=== PATIENT | female | born 1995 | race Hispanic/Latino ===

== ENCOUNTER 2018-10-22 22:59 | Emergency (ER) | payer OTHER ==
[2018-10-23 00:14] LABS: #Basophils 0.1 thou/uL (0.0-0.2); #Eosinphils 0.1 thou/uL (0.0-0.7); #Lymphocytes 2.4 thou/uL (1.20-3.40); #Monocytes 0.4 thou/uL (0.11-0.59); #Neutrophils 9.9 thou/uL (1.40-6.50); %Basophils 0.4 % (0.0-1.0); %Eosinophils 0.9 % (0.0-10.0); %Monocytes 2.8 % (0.0-10.0); %Neutrophils 76.8 % (42.0-75.0); Hemoglobin 13.4 g/dL (12.0-16.0); Mean Corpuscular HGB CONC 34.2 g/dL (32.0-36.0); Mean Corpuscular Hemoglobin 30.7 pg (27.0-31.0); Mean Corpuscular Volume 89.6 fL (78.0-98.0); Mean Platelet Volume 7.7 fL (7.4-10.4); Platelet Count 235 thou/uL (130-400); RBC Distribution Width 11.9 % (11.5-14.5); Red Blood Cell (RBC) Count 4.35 mill/uL (4.20-5.40); White Blood Cell (WBC) Count 12.8 thou/uL (4.8-10.8)
[2018-10-23] MEDS ORDERED: Ondansetron PF 4 MG/2 ML Vial ONE (00:25)
[2018-10-23] MEDS ORDERED: Morphine 4 MG/ML VIAL ONE (00:25)
[2018-10-23 00:37] LABS: Bilirubin Negative (Negative); Blood, Urine Negative (Negative); Clarity CLEAR (Clear); Glucose, Urine (Dipstick) Negative (Negative); Leukocyte Trace (Negative); Nitrite Negative (Negative); Protein, Urine (Dipstick) Negative (Neg-Trace); Specific Gravity, Urine 1.029 (1.002-1.036)
[2018-10-23 00:38] LABS: ALT (SGPT) 15 U/L (8-55); AST (SGOT) 13 U/L (5-34); Albumin 4.2 g/dL (3.5-5.0); Alkaline Phosphatase 63 U/L (40-150); Anion Gap 13 mmol/L (10-20); BUN (Urea Nitrogen) 16 mg/dL (7.0-18.7); Bilirubin, Total 0.3 mg/dL (0.2-1.2); Calc. Creatinine Clearance 0 mL/min (70-130); Calcium 9.3 mg/dL (7.8-10.44); Carbon Dioxide 22 mmol/L (22-29); Chloride 106 mmol/L (98-107); Estimated GFR-MDRD Greater than 90; Globulin 2.7 g/dL (2.4-3.5); Glucose 104 mg/dL (70-105); Lipase 18 U/L (8-78); Potassium 3.6 mmol/L (3.5-5.1); Protein, Total 6.9 g/dL (6.0-8.3); Sodium 137 mmol/L (136-145)
[2018-10-23 00:39] LABS: Bacteria/HPF None Seen HPF (None Seen); Hyaline Casts/LPF 0-3 HYALINE CAST LPF (0-3 Hyaline); Pathc Cast-AUWi Flag 0.14 (0-2.49); RBC/HPF 0-3 HPF (0-3); Squamous Epithelial 0-3 HPF (0-3)
[2018-10-23 00:40] LABS: Pregnancy Test - Urine (BHCG) Negative (Negative); Pregu Control Background? CLEAR/WHITE (CLR/WHITE); Pregu Control Bar Appear? YES (CONTROL BAR); Specific Gravity 1.029 (1.002-1.036)
--- NOTE | 2018-10-23 08:45 | CT ---
PRELIMINARY REPORT/[facility]/EMERGENTY AFTER-HOURS PROCEDURE Addendum created by Mike Bourne MD on 10/23/2018 5:55 AM Central Time ([place] & [place]) THIS REPORT CONTAINS FINDINGS THAT MAY BE CRITICAL TO PATIENT CARE. The findings were verbally commun icated via telephone conference with RAJESH FOFANA at 5:55 AM NEWSPAPER CARRIERS SUPERVISOR on 10/23/2018. The findings were ack nowledged and understood. 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 TECHNIQUE: Axial computed tomography images of the abdomen and pelvis with intravenous contrast. Coronal reforma tted images were created and reviewed. COMPARISON: No relevant prior studies available. FINDINGS: Lower thorax: No acute findings. ABDOMEN: Liver: No acute findings. No mass. Gallbladder and bile ducts: No calcified stones. No ductal dilation. Pancreas: No acute findings. No mass. No ductal dilation. Spleen: No acute findings. No mass. Adrenals: No acute findings. No mass. Kidneys and ureters: Left renal small probable calculi. Otherwise unremarkable. Stomach and bowel: Fecal loading. Diverticulosis. No evidence of bowel obstruction. Appendix: No evidence of appendicitis. PELVIS: Bladder: No acute findings. Reproductive: Large multiloculated/multicystic mass in posterior cul de sac. ABDOMEN and PELVIS: Intraperitoneal space: Trace cul de sac fluid. No free air. Bones/joints: No acute fracture. Soft tissues: No acute findings. Vasculature: No acute findings. No abdominal aortic aneurysm. Lymph nodes: No significant lymphadenopathy. Small and a few prominent mesenteric lymph nodes. IMPRESSION: Large multiloculated/multicystic pelvic mass could relate to left ovary; recommend further evaluation with pelvic ultrasound including doppler to asses for torsion. Thank you for allowing us to participate in the care of your patient. Dictated and Authenticated by: Mike Bourne MD 10/23/2018 3:24 AM Central Time ([place] & [place]) FINAL REPORT CT OF THE ABDOMEN AND PELVIS WITH CONTRAST EMERGENT AFTER HOURS EXAM: FINDINGS/IMPRESSION: I agree with the findings and impression given in the preliminary report per [facility] physician. There is a large mass just behind the uterus and in the left aspect of the pelvis. This could represent an enlarged ovary with large follicles. A pelvic ultrasound is recommended for further evaluation and to exclude ovarian torsion. If torsion is not present, then an MRI of the pelvis without and with co ntrast is recommended to better characterize the mass. POS: CET
[2018-10-23] MEDS ORDERED: ISOVUE-370 76%-LOCM 1 ML ONE (12:15)
== END 2018-10-23 03:55 | disposition home or self-care (01) ==
LOC: ERS 22:59
DX: R19.03 Right lower quadrant abdominal swelling, mass and lump (principal)
CPT/HCPCS: 36415; 74177; 80053; 81003; 81015; 81025; 83690; 85025; 96361; 96374; J2270; J2405

== ENCOUNTER 2018-12-04 00:11 | Outpatient (CLI) | payer OTHER ==
[2018-12-04 10:21] LABS: #Basophils 0.1 thou/uL (0.0-0.2); #Lymphocytes 1.7 thou/uL (1.20-3.40); #Monocytes 0.3 thou/uL (0.11-0.59); #Neutrophils 4.1 thou/uL (1.40-6.50); %Basophils 1.1 % (0.0-1.0); %Eosinophils 0.7 % (0.0-10.0); %Lymphocytes 26.9 % (21.0-51.0); %Monocytes 4.9 % (0.0-10.0); %Neutrophils 66.4 % (42.0-75.0); Hemoglobin 13.6 g/dL (12.0-16.0); Mean Corpuscular HGB CONC 32.5 g/dL (32.0-36.0); Mean Corpuscular Hemoglobin 30.1 pg (27.0-31.0); Mean Corpuscular Volume 92.6 fL (78.0-98.0); Mean Platelet Volume 7.9 fL (7.4-10.4); Platelet Count 272 thou/uL (130-400); RBC Distribution Width 12.3 % (11.5-14.5); Red Blood Cell (RBC) Count 4.52 mill/uL (4.20-5.40); White Blood Cell (WBC) Count 6.1 thou/uL (4.8-10.8)
[2018-12-04 10:31] LABS: BHCG - Serum Negative (NEGATIVE); Pregs Control Background? CLEAR/WHITE (CLR/WHITE); Pregs Control Bar Appear? YES (CONTROL BAR)
== END 2018-12-04 00:12 | disposition home or self-care (01) ==
LOC: LABBT 00:11
PROVIDERS: ATTEND Obstetrics & Gynecology
DX: Z01.812 Encounter for preprocedural laboratory examination (principal); N85.8 Other specified noninflammatory disorders of uterus
CPT/HCPCS: 84703; 85025; 86850; 86900; 86901

== ENCOUNTER 2018-12-05 10:20 | Day surgery (SDC) | payer OTHER ==
[2018-12-04 09:46] VITALS: BMI 34.2
--- NOTE | 2018-12-04 17:33 | HP ---
REASON FOR ADMISSION: Persistent complex left adnexal mass. SCHEDULED PROCEDURE: Laparoscopic left salpingo-oophorectomy with da Daniel robot assist. HISTORY OF PRESENT ILLNESS: Ms. Reis is a 23-year-old 2, para 2, with a long history of adnexal masses and ovarian cyst on the left. She initially presented to the emergency room at [facility] in early October and was found to have a complex cyst without evidence of torsion measuring approximately 8 cm in the greatest diameter. It was followed up with a repeat ultrasound in late October and found to have enlarged to approximately 12 cm in greatest diameter. CA-125 was checked and was 39.7. While this is above the upper limits of normal, it is not to the degree that would be expected with epithelial ovarian malignancy and suspicion is for probable chronic tubo-ovarian abscess versus endometrioma versus other neoplasm. The patient desires definitive surgical management. 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 No history of dysplasia. No history of STDs. Previous history of ovarian cystectomy. PAST MEDICAL HISTORY: None. PAST SURGICAL HISTORY: Ovarian cystectomy, benign pathology by patient report. ALLERGIES: NONE. MEDICATIONS: 1. [place]. 2. Ibuprofen. SOCIAL HISTORY: Denies tobacco, alcohol, or IV drug use. FAMILY HISTORY: Noncontributory. REVIEW OF SYSTEMS: Noncontributory. PHYSICAL EXAMINATION: VITAL SIGNS: White female, 5 feet 4 inches, 202 pounds, BMI 34.7, blood pressure 126/72, pulse 80, respirations 18, temperature 98.5. HEENT: Within normal limits. LUNGS: Clear to auscultation bilaterally. HEART: Regular rate and rhythm. BREASTS: No masses bilaterally. ABDOMEN: Soft and nontender. No rebound or guarding. No fluid waves noted on the abdominal exam. PELVIC: Vulva without lesions. Vagina without discharge. Cervix, parous. Uterus, anteverted, 6-week size, slightly deviated to right with fullness noted with mild to moderate discomfort on bimanual in the left adnexum. EXTREMITIES: Without clubbing, cyanosis, or edema. LABORATORY DATA: CA-125 as noted in the HPI. IMAGING DATA: Ultrasound as noted in the HPI. IMPRESSION: Complex left adnexal mass, persistent and enlarging slightly. PLAN: Discussed with the patient options. We will proceed with da Daniel robot assist laparoscopic left salpingo-oophorectomy. Anticipate a GelPOINT approach supraumbilical with large specimen retrieval bag and extracorporeal retrieval/morcellation of adnexal mass. The patient understands the risks and benefits of the procedure. We will administer appropriate antibiotic and DVT prophylaxis. Job ID: [id number]
[2018-12-05] MEDS ORDERED: Gabapentin 300 MG CAP ONE (11:15)
[2018-12-05] MEDS ORDERED: CeleCOXIB 100 MG CAP ONE (11:16)
[2018-12-05] MEDS ORDERED: Famotidine/PF 20 mg/2ml Vial ONE (11:17)
[2018-12-05] MEDS ORDERED: Fentanyl 100 MCG/2 ML VIAL ONE ×2 (11:40→14:00)
[2018-12-05] MEDS ORDERED: Bupivacaine HCl 0.5%/Epinephrine 1:200,000/PF 30 ml Vial ONE (11:50)
[2018-12-05] MEDS ORDERED: Midazolam HCl 2 mg/2 ml Vial ONE (11:54)
[2018-12-05] MEDS ORDERED: SUGAMMADEX SODIUM 200 MG/2 ML VIAL ONE (13:30)
--- NOTE | 2018-12-05 14:50 | OP ---
DATE OF PROCEDURE: 12/05/2018 PREOPERATIVE DIAGNOSIS: Complex 12 x 8 x 6 cm left adnexal mass. POSTOPERATIVE DIAGNOSES: 1. Complex 12 x 8 x 6 cm left adnexal mass. 2. 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 PROCEDURES PERFORMED: Laparoscopic left salpingo-oophorectomy with lysis of adhesions, da Daniel robot assist and extracorporal retrieval with [employer] bag and GelPOINT. ASSISTANTS: 1. Suresh Lino DO, MS. 2. Deana Hunter PA-C. ANESTHESIA: General endotracheal. ESTIMATED BLOOD LOSS: Less than 50 mL. COMPLICATIONS: None. DRAINS: Maxwell to gravity. OPERATIVE FINDINGS: 1. Complex posterior cul-de-sac, left adnexal mass with thin filmy adhesions to pelvic sidewall consistent with mature cystic teratoma. 2. Normal-appearing right tube and ovary without evidence of contralateral teratoma. 3. Normal-appearing uterus. 4. Hemostasis, clear urine. COUNTS: Correct at the end of the procedure. DISPOSITION: Recovery room in good condition. DESCRIPTION OF PROCEDURE: After obtaining appropriate informed consent, the patient was taken to the operating room, where general endotracheal anesthesia was achieved without difficulty. The patient was prepped and draped in the usual manner. Maxwell catheter was placed in the bladder. Cervix was identified, grasped with single-tooth tenaculum and a VON manipulator was placed inside. Studio Receptionist changed his gloves, turned attention to abdominal portion of procedure. 5 mL of Marcaine was injected above the umbilicus and a 12 mm skin incision was made. Direct insertion of a noncutting 12 mm trocar was introduced in direct technique with the laparoscope inside an Optiview manner. Confirmation of entry into the peritoneal cavity was identified without trauma to the underlying viscera. The abdomen was insufflated with carbon dioxide. The patient was placed in Trendelenburg position. Right and left lateral da Daniel robot assistant to the ceo ports were placed under direct visualization as well as an assistant to the ceo port 11 mm in the right upper quadrant. Findings as noted in the operative findings were noted. The da Daniel camera was removed and the skin incision enlarged approximately 3 cm at the level of the umbilicus, taken down to the fascia and approximately 2.5 cm incision was made through the fascia for placement of the [employer] GelPOINT port, which was then placed in the abdomen reinsufflated with carbon dioxide. Da Daniel robot was docked with monopolar scissors in the right hand and bipolar fenestrated forceps in the left. The patient had been placed in steep Trendelenburg and the da Daniel docked. The infundibulopelvic ligament was identified and noted to be on stretch on the patient's left. It was coagulated and transected and then carried through the mesosalpinx and broad ligament all the way up to the level of the utero-ovarian ligament, which was coagulated and transected. The specimen having been freed of its vascular appendages. Traction was applied to it midline. Thin filmy adhesions were identified and these were taken down. The ureter was well identified and noted to be well below the level of the pelvic brim and the IP ligament at its coagulation and transection site. Large [employer] retrieval bag had been placed in the abdomen previous to docking the da Daniel robot, it was pulled into the pelvis. Stay sutures removed and the specimen placed in the back. It was then grasped with an atraumatic grasper that had been introduced through the GelPOINT and the strings pulled out. Da Daniel instruments were removed and undocked and the patient levelled off insufflation was ceased and the GelPOINT covering was removed and the retrieval bag pulled out through the small Ismael O, that had been introduced at the level of the umbilicus. The adnexal mass was grasped and incised. Sebum was noted with some tissue that appeared to be consistent with thyroid tissue. The specimen was morcellated out in a extracorporeal manner taking care to avoid spillage into the abdominal cavity. Once the entire specimen was removed, the [employer] large retrieval bag was removed from the abdomen. The entire specimen was sent for pathologic analysis. The small Ismael O was removed and the fascial edges grasped. Fascia closed using a running continuous 0 PDS suture. Subcutaneous tissue irrigated. Subcuticular closing all trocar sites and then Dermabond applied. Maxwell catheter removed. VON manipulator removed. The patient awakened and extubated to recovery room in good condition. She will be followed per [facility] as scheduled. Job ID: [id number]
[2018-12-05] MEDS ORDERED: HYDROcodone/Acetaminophen 5/325 mg Tablet ONE (14:54)
[2018-12-05] MEDS ORDERED: Ondansetron PF 4 MG/2 ML Vial ONE (15:40)
[2018-12-05] MEDS ORDERED: Lidocaine 1% PF 5 ML VIAL ONE (15:40)
[2018-12-05] MEDS ORDERED: Rocuronium Bromide 10 MG/ML (10ML VIAL) ONE (15:40)
[2018-12-05] MEDS ORDERED: PROPOFOL 200 MG/20 ML VIAL ONE (15:40)
[2018-12-05] MEDS ORDERED: PHENYLEPHRINE-NS 100 MCG/ML 10 ML SYRINGE ONE (15:40)
[2018-12-05] MEDS ORDERED: Ketorolac Tromethamine 30 MG/ML VIAL ONE (15:40)
[2018-12-05] MEDS ORDERED: Dexamethasone 20 MG/5 ML VIAL ONE (15:40)
== END 2018-12-05 16:00 | disposition home or self-care (01) ==
LOC: SDC 10:20
PROVIDERS: ATTEND Obstetrics & Gynecology
PROC: 0UB64ZZ Excision of Left Fallopian Tube, Percutaneous Endoscopic Approach (ICD-10-PCS; principal; 2018-12-05)
PROC: 0UB14ZZ Excision of Left Ovary, Percutaneous Endoscopic Approach (ICD-10-PCS; principal; 2018-12-05)
DX: N83.202 Unspecified ovarian cyst, left side (principal); N73.6 Female pelvic peritoneal adhesions (postinfective); Z91.040 Latex allergy status; Z98.890 Other specified postprocedural states
CPT/HCPCS: 88307; J0131; J0670; J1100; J1885; J2001; J2250; J2405; J2704; J3010; S0028

== ENCOUNTER 2019-01-09 16:40 | Outpatient (CLI) | payer OTHER ==
--- NOTE | 2019-01-09 17:05 | CT ---
FCT thorax with contrast CT abdomen with contrast CT pelvis with contrast: 01/09/2019 HISTORY: 23-year-old female with history of left ovarian neoplasm. COMPARISON: 10/23/2018 FINDINGS: The lungs are clear. No mediastinal or hilar lymphadenopathy. No pleural effusion, pneumothorax, or c ardiomegaly. Normal thoracic aorta. ABDOMEN: Again noted is the approximately 6 x 7 x 7 mm stellate calculus at left renal upper pole calyx. No hy dronephrosis. No intrarenal abnormality bilaterally. The liver, abdominal aorta, pancreas, adrenals, and spleen, are normal. No small bowel dilation. No lymphadenopathy involving billy hepatis, mesenter y, or retroperitoneum. Normal appendix. Pelvis: The previously demonstrated large solid and cystic retrouterine intrapelvic mass is no longer present . There is a new finding of a small amount of free fluid in the cul-de-sac, probably physiologic in a female patient of this age. There is a new 3.5 x 3 x 3.5 cm right ovarian cyst. Uterus remains. No s igns of colonic diverticulitis. No iliac chain lymphadenopathy. Skeletal: No evidence of osseous metastases. IMPRESSION: 1. Status post surgical resection of the large solid and cystic left ovarian neoplastic tumor mass. 2. New 3.5 cm right ovarian cyst. 3. No evidence of metastatic disease.
== END 2019-01-09 16:41 | disposition home or self-care (01) ==
LOC: BICCT 16:40
DX: C56.9 Malignant neoplasm of unspecified ovary (principal); N83.201 Unspecified ovarian cyst, right side; Z98.890 Other specified postprocedural states
CPT/HCPCS: 71260; 74177

== ENCOUNTER 2021-11-10 07:07 | Emergency (ER) | payer OTHER, SELFPAY ==
[2021-11-10 07:35] LABS: Pregnancy Test - Urine (BHCG) Negative (Negative); Pregu Control Background? CLEAR/WHITE (CLR/WHITE); Pregu Control Bar Appear? YES (CONTROL BAR); Specific Gravity 1.004 (1.002-1.036)
[2021-11-10 07:37] LABS: Bacteria/HPF 1+ HPF (None Seen); Bilirubin Negative (Negative); Blood, Urine Trace (Negative); Clarity Clear (Clear); Glucose, Urine (Dipstick) Normal (Negative); Ketone, Urine Negative (Negative); Leukocyte Negative Leu/uL (Negative); Nitrite Negative (Negative); Protein, Urine (Dipstick) Negative (Neg-Trace); RBC/HPF 0-3 HPF (0-3); Specific Gravity, Urine 1.004 (1.002-1.036); Squamous Epithelial 0-3 HPF (0-3); Urobilinogen Normal mg/dL (Less than 2); WBC/HPF 0-3 HPF (0-3); pH, Urine 6.5 (5.0-9.0)
== END 2021-11-10 08:25 | disposition home or self-care (01) ==
LOC: ERS 07:07
DX: N39.0 Urinary tract infection, site not specified (principal)
CPT/HCPCS: 81003; 81015; 81025; 87086; 99283

== ENCOUNTER 2022-06-03 20:07 | Emergency (ER) | payer SELFPAY ==
[2022-06-03 21:06] LABS: Bilirubin Negative (Negative); Blood, Urine Trace (Negative); Clarity Clear (Clear); Glucose, Urine (Dipstick) Normal (Negative); Ketone, Urine Negative (Negative); Leukocyte Negative Leu/uL (Negative); Nitrite Negative (Negative); Pregnancy Test - Urine (BHCG) Negative (Negative); Protein, Urine (Dipstick) Negative (Neg-Trace); Specific Gravity, Urine 1.019 (1.002-1.036); Urobilinogen Normal mg/dL (Less than 2); WBC/HPF 0-3 HPF (0-3); pH, Urine 5.5 (5.0-9.0)
[2022-06-03 21:07] LABS: Pregu Control Background? CLEAR/WHITE (CLR/WHITE); Pregu Control Bar Appear? YES (CONTROL BAR); Specific Gravity 1.019 (1.002-1.036)
[2022-06-03 21:15] LABS: Bacteria/HPF 2+ HPF (None Seen)
== END 2022-06-03 21:36 | disposition home or self-care (01) ==
LOC: ERS 20:07
DX: M25.50 Pain in unspecified joint (principal); Z20.822 Contact with and (suspected) exposure to COVID-19
CPT/HCPCS: 81003; 81015; 81025; 87086; 99283; U0003; U0005

== ENCOUNTER 2022-06-14 07:32 | Emergency (ER) | payer SELFPAY ==
[2022-06-14 08:17] LABS: #Monocytes 0.4 thou/uL (0.11-0.59); #Neutrophils 4.9 thou/uL (1.40-6.50); %Basophils 0.5 % (0.0-1.0); %Eosinophils 0.5 % (0.0-10.0); %Lymphocytes 27.2 % (21.0-51.0); %Monocytes 5.3 % (0.0-10.0); %Neutrophils 66.5 % (42.0-75.0); Hemoglobin 13.5 g/dL (12.0-16.0); Mean Corpuscular HGB CONC 33.9 g/dL (32.0-36.0); Mean Corpuscular Hemoglobin 31.4 pg (27.0-31.0); Mean Corpuscular Volume 92.5 fL (78.0-98.0); Mean Platelet Volume 7.2 fL (7.4-10.4); Platelet Count 329 thou/uL (130-400); RBC Distribution Width 12.5 % (11.5-14.5); Red Blood Cell (RBC) Count 4.31 mill/uL (4.20-5.40); White Blood Cell (WBC) Count 7.4 thou/uL (4.8-10.8)
[2022-06-14 08:21] LABS: BHCG - Serum Negative (NEGATIVE); Pregs Control Background? CLEAR/WHITE (CLR/WHITE); Pregs Control Bar Appear? YES (CONTROL BAR)
[2022-06-14 08:39] LABS: ALT (SGPT) 22 U/L (8-55); AST (SGOT) 15 U/L (5-34); Acetaminophen Less than 10.0 mcg/mL (10.0-30.0); Albumin 4.5 g/dL (3.5-5.0); Alcohol Less than 10 mg/dL (Less than 10); Alkaline Phosphatase 66 U/L (40-110); Anion Gap 16 mmol/L (10-20); BUN (Urea Nitrogen) 15 mg/dL (7.0-18.7); Bilirubin, Total 0.7 mg/dL (0.2-1.2); Calc. Creatinine Clearance 0 mL/min (70-130); Calcium 9.6 mg/dL (7.8-10.44); Carbon Dioxide 19 mmol/L (22-29); Chloride 108 mmol/L (98-107); Estimated GFR 98; Globulin 2.9 g/dL (2.4-3.5); Glucose 113 mg/dL (70-105); Potassium 3.7 mmol/L (3.5-5.1); Protein, Total 7.4 g/dL (6.0-8.3); Salicylate Less than 8.0 mg/dL (15.0-30.0); Sodium 139 mmol/L (136-145)
[2022-06-14 10:14] LABS: Bilirubin Negative (Negative); Blood, Urine Negative (Negative); Clarity Clear (Clear); Glucose, Urine (Dipstick) Normal (Negative); Ketone, Urine Trace mg/dL (Negative); Leukocyte Negative Leu/uL (Negative); Nitrite Negative (Negative); Protein, Urine (Dipstick) Negative (Neg-Trace); Specific Gravity, Urine 1.013 (1.002-1.036); Urobilinogen Normal mg/dL (Less than 2)
[2022-06-14] MEDS ORDERED: Lorazepam (BATCHED) 2 MG/ML SYR ONE (10:20)
[2022-06-14 10:24] LABS: Amphetamine Not Detected (NotDetected); Barbiturates Screen Not Detected (NotDetected); Benzodiazepine Screen Not Detected (NotDetected); Cocaine Metabolite Screen Not Detected (NotDetected); Methadone Not Detected (NotDetected); Methamphetamine Not Detected (NotDetected); Opiate Screen Not Detected (NotDetected); Oxycodone Screen Not Detected (NotDetected); Phencyclidine (PCP) Not Detected (NotDetected); THC/Cannabinoid Screen Detected (NotDetected); Tricyclic Screen Not Detected (NotDetected)
[2022-06-14] MEDS ORDERED: Haloperidol Lactate 5 MG/ML VIAL ONE (11:30)
== END 2022-06-14 14:31 ==
LOC: ERS 07:32
DX: F30.9 Manic episode, unspecified (principal)
CPT/HCPCS: 36415; 70450; 80053; 80306; 80307; 81003; 82550; 84443; 84703; 85025; 93005; 96372; J1630; J2060

== ENCOUNTER 2022-10-04 20:12 | Emergency (ER) | payer SELFPAY ==
[2022-10-04] MEDS ORDERED: Lidocaine 1% w/Epinephrine 1:100K 20 ML VIAL ONE (20:50)
[2022-10-04] MEDS ORDERED: Sulfameth/Trimethoprim DS 800-160mg TAB ONE (21:14)
== END 2022-10-04 21:48 | disposition home or self-care (01) ==
LOC: ERS 20:12
DX: L02.211 Cutaneous abscess of abdominal wall (principal); I10 Essential (primary) hypertension; E78.00 Pure hypercholesterolemia, unspecified
CPT/HCPCS: 10060; 87070; 87205

== ENCOUNTER 2025-06-24 12:30 | Emergency (ER) | payer SELFPAY ==
[2025-06-24 14:35] LABS: #Basophils 0.04 10x3/uL (0.0-0.2); #Eosinophils Less than 0.03 10x3/uL (0.0-0.7); #Monocytes 0.30 10x3/uL (0.11-0.59); #Neutrophils 10.30 10x3/uL (1.40-6.50); %Basophils 0.3 % (0.0-1.0); %Eosinophils 0.1 % (0.0-10.0); %Lymphocytes 11.9 % (21.0-51.0); %Monocytes 2.5 % (0.0-10.0); %Neutrophils 84.7 % (42.0-75.0); Hematocrit 41.4 % (36.0-47.0); Hemoglobin 13.5 g/dL (12.0-16.0); Mean Corpuscular Hemoglobin 28.7 pg (27.0-31.0); Mean Corpuscular Volume 88.1 fL (78.0-98.0); Platelet Count 315 10x3/uL (130-400); Red Blood Cell (RBC) Count 4.70 mill/uL (4.20-5.40); White Blood Cell (WBC) Count 12.16 10x3/uL (4.8-10.8)
[2025-06-24] MEDS ORDERED: Dexamethasone 10 MG/ML VIAL ONE (14:37)
[2025-06-24 16:05] LABS: Bacteria/HPF 1+ HPF (None Seen); Glucose, Urine (Dipstick) Normal (Negative); Leukocyte 25 Leu/uL (Negative); Protein, Urine (Dipstick) Negative (Neg-Trace); Specific Gravity, Urine 1.019 (1.002-1.036)
[2025-06-24 16:08] LABS: Pregnancy Test - Urine (BHCG) Negative (Negative); Pregu Control Background? CLEAR/WHITE (CLR/WHITE); Pregu Control Bar Appear? YES (CONTROL BAR)
[2025-06-24 16:31] LABS: ALT (SGPT) 20 U/L (Less than 34); AST (SGOT) 17 U/L (11-34); Albumin 4.2 g/dL (3.1-4.5); Alkaline Phosphatase 93 U/L (40-110); Anion Gap 12 mmol/L (10-20); BUN (Urea Nitrogen) 9 mg/dL (7.0-18.7); Bilirubin, Total 0.3 mg/dL (0.3-1.2); Calc. Creatinine Clearance 0 mL/min (70-130); Calcium 9.6 mg/dL (7.8-10.44); Carbon Dioxide 23 mmol/L (22-29); Chloride 106 mmol/L (98-107); Globulin 3.2 g/dL (2.4-3.5); Glucose 108 mg/dL (70-105); Potassium 3.8 mmol/L (3.5-5.1); Sodium 137 mmol/L (136-145)
== END 2025-06-24 17:00 | disposition home or self-care (01) ==
LOC: ERS 12:30
DX: R42 Dizziness and giddiness (principal); R29.700 NIHSS score 0; I10 Essential (primary) hypertension; E78.5 Hyperlipidemia, unspecified; E66.9 Obesity, unspecified; G93.41 Metabolic encephalopathy
CPT/HCPCS: 71045; 80053; 81001; 81025; 85025; 93005; J1100; J2550; Q0162

== ENCOUNTER 2025-10-02 10:39 | Emergency (ER) | payer MEDICAID, SELFPAY ==
[2025-10-02] MEDS ORDERED: Ketorolac Tromethamine 30 MG (1 mL) VIAL ONE (11:20)
[2025-10-02 11:32] LABS: #Basophils 0.04 10x3/uL (0.0-0.2); #Eosinophils 0.07 10x3/uL (0.0-0.7); #Monocytes 0.29 10x3/uL (0.11-0.59); #Neutrophils 6.96 10x3/uL (1.40-6.50); %Basophils 0.4 % (0.0-1.0); %Eosinophils 0.8 % (0.0-10.0); %Lymphocytes 20.8 % (21.0-51.0); %Monocytes 3.1 % (0.0-10.0); %Neutrophils 74.6 % (42.0-75.0); Hematocrit 41.5 % (36.0-47.0); Hemoglobin 14.0 g/dL (12.0-16.0); Mean Corpuscular Hemoglobin 29.3 pg (27.0-31.0); Mean Corpuscular Volume 86.8 fL (78.0-98.0); Platelet Count 328 10x3/uL (130-400); Red Blood Cell (RBC) Count 4.78 mill/uL (4.20-5.40); White Blood Cell (WBC) Count 9.33 10x3/uL (4.8-10.8)
[2025-10-02 11:36] LABS: ALT (SGPT) 19 U/L (Less than 34); AST (SGOT) 16 U/L (11-34); Albumin 4.4 g/dL (3.1-4.5); Anion Gap 16 mmol/L (10-20); BUN (Urea Nitrogen) 11 mg/dL (7.0-18.7); Bilirubin, Total 0.3 mg/dL (0.3-1.2); Calc. Creatinine Clearance 0 mL/min (70-130); Calcium 9.7 mg/dL (7.8-10.44); Carbon Dioxide 20 mmol/L (22-29); Chloride 107 mmol/L (98-107); Globulin 3.2 g/dL (2.4-3.5); Glucose 119 mg/dL (70-105); Lipase 14 U/L (8-78); Potassium 3.9 mmol/L (3.5-5.1); Sodium 139 mmol/L (136-145)
[2025-10-02 11:45] LABS: Alkaline Phosphatase 85 U/L (40-110)
[2025-10-02] MEDS ORDERED: HYDROcodone/Acetaminophen 10/325 mg Tablet ONE (12:09)
[2025-10-02 12:26] LABS: Bacteria/HPF None Seen HPF (None Seen); CAUTI Indications for Culture Dysuria,urgency,freq; Glucose, Urine (Dipstick) Normal (Negative); Leukocyte Negative Leu/uL (Negative); Pregnancy Test - Urine (BHCG) Negative (Negative); Pregu Control Background? CLEAR/WHITE (CLR/WHITE); Pregu Control Bar Appear? YES (CONTROL BAR); Protein, Urine (Dipstick) 10 mg/dL (Neg-Trace); RBC/HPF 0-3 HPF (0-3); Specific Gravity, Urine 1.028 (1.002-1.036); WBC/HPF 0-3 HPF (0-3)
[2025-10-02 12:27] LABS: Urine Culture Reflex No No
== END 2025-10-02 15:45 | disposition home or self-care (01) ==
LOC: ERS 10:39
DX: N83.201 Unspecified ovarian cyst, right side (principal); N20.2 Calculus of kidney with calculus of ureter; I10 Essential (primary) hypertension
CPT/HCPCS: 74177; 76856; 80053; 81001; 81025; 83690; 85025; 96374; J1885